=== PATIENT | female | born 1970 | race American Indian/Alaskan Native ===

== ENCOUNTER 2021-07-22 13:58 | Emergency (ER) | payer OTHER ==
--- NOTE | 2021-07-22 19:08 | Emergency Department Report ---
Minor Respiratory - HPI Chief Complaint: Upper Respiratory Infection Stated Complaint: SHORTNESS OF BREATH Severity: mild Minor Respiratory: Yes Able to Tolerate Fluids, Yes Cough (1 WEEK ), Yes Fever, No Rhinorrhea, No Sore Throat, No Ear Pain, No Sick Contacts, No Hemoptysis, No Chest Pain Other History: 51 y/o male presents to the ED with cough x1 week. Patient has a history of COPD. States she is currently sleep with a CPAP. She states moved from out of town and do not have a pulmonology or primary care doctor. Patient states that she has COVID July. Denies any shortness of breath chest pain or fever at present . No acute distress noted ill appearance noted ED Review of Systems ROS: Stated complaint: SHORTNESS OF BREATH Other details as noted in HPI Constitutional: denies: chills, fever Eyes: denies: eye pain, eye discharge, vision change ENT: denies: ear pain, throat pain Respiratory: cough. denies: shortness of breath, wheezing Cardiovascular: denies: chest pain, palpitations Endocrine: no symptoms reported Gastrointestinal: denies: abdominal pain, nausea, diarrhea Genitourinary: denies: urgency, dysuria, discharge Musculoskeletal: denies: back pain, joint swelling, arthralgia Skin: denies: rash, lesions Neurological: denies: headache, weakness, paresthesias Psychiatric: denies: anxiety, depression Hematological/Lymphatic: denies: easy bleeding, easy bruising Minor Respiratory Exam - Exam General: Vital signs noted. No distress. Alert and acting appropriately. HEENT: Yes Moist Mucous Membranes, No Pharyngeal Erythema, No Pharyngeal Exudates, No Rhinorrhea, No Conjuctival Injection, No Frontal Tenderness, No Maxillary Tenderness Ear: Neither TM Bulge, Neither TM Erythema, Neither EAC Pain, Neither EAC Discharge Neck: Yes Supple, No Adenopathy Lungs: Yes Good Air Exchange, No Wheezes, No Ronchi, No Stridor, No Cough, No Labored Respirations, No Retractions, No Use of Accessory Muscles, No Other Abnormal Lung Sounds Heart: Yes Regular, No Murmur Abdomen: Yes Normal Bowel Sounds, No Tenderness, No Peritoneal Signs Skin: No Rash, No Edema Neurologic: Alert and oriented, no deficits. Musculoskeletal: Unremarkable. ED Course Vital Signs 07/22/21 14:08 Temperature 98.2 F Pulse Rate 88 Respiratory 22 Rate Blood Pressure 117/71 O2 Sat by Pulse 95 Oximetry ED Medical Decision Making - Medical Decision Making 51 y/o male presents to the ED with cough x1 week. Patient has a history of COPD. States she is currently sleep with a CPAP. She states moved from out of town and do not have a pulmonology or primary care doctor. Patient states that she has COVID July. Denies any shortness of breath chest pain or fever at present . No acute distress noted . No ill appearance Discussed plan of care I have spoken with the patient and/or caregiver. I have explained the patient condition, diagnosis and treatment plan based on information available to me at this time. I have answered the patient and/caregiver questions and addressed any concerns. The patient and/or caregiver have has good an understanding of the patient diagnosed condition and treatment plan as can be expected at this point. The vital signs have been stable. The patient condition is stable and appropriate for discharge from the emergency department. The patient and caregiver has been given detailed instruction in a written format and expressed understanding of discharge instruction. The patient/or caregiver are aware that any significant change in condition or worsening of symptoms should prompt an immediate return to the this or the closest emergency department or call to 1 Critical care attestation.: If time is entered above; I have spent that time in minutes in the direct care of this critically ill patient, excluding procedure time. 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
[2021-07-22 19:47] VITALS: BP 118/68
== END 2021-07-22 19:42 | disposition home or self-care (01) ==
LOC: ED 13:58
DX: R05.9 Cough, unspecified (principal); J44.9 Chronic obstructive pulmonary disease, unspecified
CPT/HCPCS: 99282

== ENCOUNTER 2022-01-04 09:18 | Emergency (ER) | payer OTHER ==
[2022-01-04 10:25] VITALS: BP 164/100
[2022-01-04] MEDS ORDERED: ACETAMINOPHEN 500 MG TAB PO ONE (10:52)
--- NOTE | 2022-01-04 11:51 | Cat Scan Report ---
CT head/brain wo con INDICATION / CLINICAL INFORMATION: 51 years Female; head trauma. TECHNIQUE: Routine CT head without contrast. All CT scans at this location are performed using CT dos e reduction for ALARA by means of automated exposure control. COMPARISON: None. FINDINGS: BRAIN / INTRACRANIAL CONTENTS: No acute hemorrhage, mass effect, midline shift, hydrocephalus, or acu te, large territorial infarct. No signs of significant atrophy or chronic infarct. No significant whi te matter abnormality seen. CRANIOCERVICAL JUNCTION: No significant abnormality. ORBITS: No significant abnormality of visualized orbits. SINUSES / MASTOIDS: Visualized paranasal sinuses and mastoid air cells are essentially clear. ADDITIONAL FINDINGS: Mild atherosclerotic disease seen in the anterior circulation. IMPRESSION: 1. No focal mass, hemorrhage, hydrocephalus, or acute, large territorial infarct. Signer Name: Chong Pinon MD, III Signed: 01/04/2022 11:47 AM Workstation Name: [id number]
--- NOTE | 2022-01-04 11:59 | Cat Scan Report ---
CT cervical spine wo con INDICATION / CLINICAL INFORMATION: 51 years Female; head trauma. TECHNIQUE: Axial CT images of the cervical spine were obtained. Sagittal and coronal reformatted images were pr oduced. All CT scans at this location are performed using CT dose reduction for ALARA by means of aut omated exposure control. COMPARISON: None available. FINDINGS: POST-SURGICAL CHANGES: None. ALIGNMENT: Straightening of the cervical spine noted, which may be related to patient positioning. VERTEBRAE: No signs of fracture. Vertebral bodies are grossly normal in height throughout. Mild osseous foraminal narrowing seen on the left at C5-6 and C6-7 from uncinate hypertrophy. Similar findings seen on the right to a lesser degree, at the same levels. INTRAVERTEBRAL DISCS: Disc space narrowing seen at C5-6 and mildly at C6-7. Mild disc disease seen at various levels. No dominant herniation or canal stenosis appreciated. PARASPINAL SOFT TISSUES: No significant abnormality. ADDITIONAL FINDINGS: Minimal atherosclerotic disease is seen in the anterior circulation. IMPRESSION: 1. No signs of acute bony trauma to the cervical spine. Signer Name: Chong Pinon MD, III Signed: 01/04/2022 11:54 AM Workstation Name: [id number]
--- NOTE | 2022-01-04 12:21 | Emergency Department Report ---
ED Head Trauma HPI - General Chief complaint: Pain General Stated complaint: CEILING FELL ON PT HEAD/SHOULDER Source: patient Mode of arrival: Ambulatory Limitations: No Limitations - History of Present Illness MD Complaint: head injury, other (Neck pain, headache) -: Sudden, hour(s) (12) Arrival Conditions: Negative: C-spine immobilization present, spinal board immobilization present Mechanism of Injury: other (ceiling collapsed on the head) Location: parietal Loss of Consciousness: no Previous Trauma to this Area: No Place: home Radiation: none Severity: severe Severity scale (0 -10): 7 Quality: sharp, aching Consistency: constant Provoking factors: none known Other Injuries: none Associated Symptoms: denies other symptoms, neck pain. denies: confusion, amnesia, repetitive questioning, vision changes, nausea, vomiting, vertigo, weakness, tingling, other - Related Data Home Medications Medication Instructions Recorded Confirmed Last Taken AtorvaSTATin 10 mg PO QDAY 01/04/22 01/04/22 Unknown Losartan 100 mg PO QDAY 01/04/22 01/04/22 Unknown hydroCHLOROthiazide 5 mg PO QDAY 01/04/22 01/04/22 Unknown Previous Rx's Medication Instructions Recorded Last Taken Type Baclofen 20 mg PO Q12H PRN #20 tab 01/04/22 Unknown Rx Ibuprofen [Motrin] 800 mg PO Q8HR PRN #30 tablet 01/04/22 Unknown Rx Allergies/Adverse reactions: Allergies Allergy/AdvReac Type Severity Reaction Status Date / Time lisinopril Allergy Swelling Verified 01/04/22 10:25 ED Review of Systems ROS: Stated complaint: CEILING FELL ON PT HEAD/SHOULDER Other details as noted in HPI Constitutional: denies: chills, fever Eyes: denies: eye pain, eye discharge, vision change ENT: denies: ear pain, throat pain Respiratory: denies: cough, shortness of breath, wheezing Cardiovascular: denies: chest pain, palpitations Endocrine: no symptoms reported Gastrointestinal: denies: abdominal pain, nausea, vomiting, diarrhea Genitourinary: denies: urgency, dysuria, discharge Musculoskeletal: arthralgia (neck pain), myalgia. denies: back pain, joint s welling Skin: denies: rash, lesions Neurological: headache. denies: weakness, paresthesias Psychiatric: denies: anxiety, depression Hematological/Lymphatic: denies: easy bleeding, easy bruising ED Past Medical Hx - Past Medical History Hx Hypertension: Yes Hx Diabetes: Yes - Surgical History Past Surgical History?: No - Social History Smoking Status: Never Smoker - Medications Home Medications: Home Medications Medication Instructions Recorded Confirmed Last Taken Type AtorvaSTATin 10 mg PO QDAY 01/04/22 01/04/22 Unknown History Baclofen 20 mg PO Q12H PRN #20 tab 01/04/22 Unknown Rx Ibuprofen [Motrin] 800 mg PO Q8HR PRN #30 tablet 01/04/22 Unknown Rx Losartan 100 mg PO QDAY 01/04/22 01/04/22 Unknown History hydroCHLOROthiazide 5 mg PO QDAY 01/04/22 01/04/22 Unknown History ED Physical Exam - General Limitations: No Limitations General appearance: alert, in no apparent distress - Head Head exam: Present: atraumatic, normocephalic, normal inspection - Eye Eye exam: Present: normal appearance, PERRL, EOMI Pupils: Present: normal accommodation - ENT ENT exam: Present: normal exam, normal orophraynx, mucous membranes moist, TM's normal bilaterally, normal external ear exam - Neck Neck exam: Present: normal inspection, tenderness (cervical ), full ROM - Respiratory Respiratory exam: Present: normal lung sounds bilaterally. Absent: respiratory distress, wheezes, rales, rhonchi, chest wall tenderness, accessory muscle use, decreased breath sounds, prolonged expiratory - Cardiovascular Cardiovascular Exam: Present: regular rate, normal rhythm, normal heart sounds. Absent: systolic murmur, diastolic murmur, rubs, gallop - GI/Abdominal GI/Abdominal exam: Present: soft, normal bowel sounds. Absent: tenderness, guarding, rebound, rigid, hyperactive bowel sounds, hypoactive bowel sounds, organomegaly - Extremities Exam Extremities exam: Present: normal inspection, full ROM, normal capillary refill. Absent: tenderness - Back Exam Back exam: Present: normal inspection, full ROM. Absent: tenderness, CVA tenderness (R), CVA tenderness (L), muscle spasm, paraspinal tenderness, vertebral tenderness - Neurological Exam Neurological exam: Present: alert, oriented X3, CN II-XII intact, normal gait, reflexes normal - Psychiatric Psychiatric exam: Present: normal affect, normal mood - Skin Skin exam: Present: warm, dry, intact, normal color. Absent: rash ED Course Vital Signs 01/04/22 01/04/22 09:41 10:23 Temperature 98 F 98.5 F Pulse Rate 90 88 Respiratory 18 18 Rate Blood Pressure 146/98 Blood Pressure 164/100 [Left] O2 Sat by Pulse 99 99 Oximetry Critical care attestation.: If time is entered above; I have spent that time in minutes in the direct care of this critically ill patient, excluding procedure time. ED Disposition Clinical Impression: Cervical paraspinal muscle spasm Head injury due to trauma Qualifiers: Encounter type: initial encounter Qualified Code(s): S09.90XA - Unspecified injury of head, initial encounter Acute post-traumatic headache Qualifiers: Intractability: not intractable Qualified Code(s): G44.319 - Acute post- traumatic headache, not intractable Disposition: HOME / SELF CARE / HOMELESS Is pt being admited?: No Does the pt Need Aspirin: No Condition: Stable Instructions: Muscle Cramps and Spasms, [id number], Cervical Sprain, [id number], Tension Headache, Adult, [id number] Additional Instructions: The C-spine CT scan without contrast showed no acute cervical disc fractures or subluxations. The head CT scan without contrast showed no acute intracranial abnormalities or hemorrhage. Therefore take medication with food, drink plenty of fluids and follow-up with your primary care physician in 5 to 7 days for reevaluation. Return to the ED immediately if symptoms get worse. Prescriptions: Baclofen 20 mg PO Q12H PRN #20 tab PRN Reason: Muscle Spasm Ibuprofen [Motrin] 800 mg PO Q8HR PRN #30 tablet PRN Reason: Pain , Severe (7-10) Referrals: SANDY ARAMBULA MD [Primary Care Provider] - 3-5 Days Forms: Work/School Release Form(ED) Time of Disposition: 12:21 Print Language: MONGOLIAN
== END 2022-01-04 12:43 | disposition home or self-care (01) ==
LOC: ED 09:18
DX: S09.90XA Unspecified injury of head, initial encounter (principal); G44.319 Acute post-traumatic headache, not intractable; M62.838 Other muscle spasm; M54.2 Cervicalgia; I10 Essential (primary) hypertension; E11.9 Type 2 diabetes mellitus without complications; Z88.8 Allergy status to other drugs, medicaments and biological substances; Z79.899 Other long term (current) drug therapy; W18.39XA Other fall on same level, initial encounter; Y93.89 Activity, other specified; Y92.89 Other specified places as the place of occurrence of the external cause; Y99.8 Other external cause status
CPT/HCPCS: 70450; 72125; 99283